=== PATIENT | female | born 1975 | race Caucasian/White ===

== ENCOUNTER 2023-12-27 13:24 | Emergency (ER) | payer BC, SELFPAY ==
[2023-12-27 13:33] VITALS: BP 152/78
[2023-12-27 13:54] LABS: % Basophils 0.2 % (0-2); % Eosinophils 0.1 % (0-6); % Immature Granulocytes 0.4 % (0-0.5); % Lymphocytes 21.2 % (20.5-51.1); % Monocytes 5.7 % (1.7-9.3); % Neutrophils 72.4 % (42.2-75.2); Absolute Lymphocytes 2.4 10^3/uL (1.2-3.4); Absolute Monocytes 0.6 10^3/uL (0.1-0.6); Absolute Neutrophils 8.2 10^3/uL (1.4-6.5); Hematocrit 44.7 % (37.0-47.0); Hemoglobin 15.2 g/dL (12.0-16.0); Mean Corpuscular Hgb 29.4 pg (27.0-31.0); Mean Corpuscular Volume 86.5 fL (81.0-99.0); Mean Platelet Volume 10.6 fL (7.4-10.4); Nucleated Red Blood Cells % 0 %; Platelet Count 239 10^3/uL (130-400); Red Blood Cell Count 5.17 10^6/uL (4.20-5.40); Red Cell Dist. Width 12.1 % (11.5-14.5); White Blood Cell Count 11.3 10^3/uL (4.8-10.8)
[2023-12-27 14:03] LABS: HCG, Serum Qualitative Screen Negative
[2023-12-27 14:16] LABS: ALT (SGPT) 17 U/L (0-35); AST (SGOT) 19 U/L (14-36); Albumin 5.1 g/dl (3.5-5.0); Alkaline Phosphatase 51 U/L (38-126); Blood Urea Nitrogen 16 mg/dl (7-17); Calcium 10.1 mg/dl (8.4-10.2); Carbon Dioxide 25 mmol/L (22-30); Chloride 103 mmol/L (98-107); Glucose 136 mg/dl (70-99); Potassium 3.6 mmol/L (3.5-5.1); Sodium 136 mmol/L (135-145); Total Bilirubin 0.7 mg/dl (0.2-1.3); eGFR > 60.00
--- NOTE | 2023-12-27 14:28 | ED.GENMED ---
History of Present Illness
General
Chief Complaint: Weakness
Time Seen by Provider: 12/27/23 13:55
Travel History
Have you had any contact with someone who has COVID-19?: No
Do you have any symptoms of coronavirus? Fever > 100 degrees, chills, cough, shortness of breath, sore throat, loss of taste or smell, muscle aches, or headache?: No
History of Present Illness
History of Present Illness:
Patient presents to the emergency department with generalized fatigue, paresthesias. Notes that she has been being worked up for left-sided facial tingling that has been going on for weeks. She initially was seen by her dentist who cleared her.
She has an appointment upcoming with ENT. Her primary doctor saw her and started steroids and Augmentin. Denies any sore throat or swollen lymph nodes. Denies any fever but did have a temperature 99. Denies any difficulty swallowing. States
symptoms improved but yesterday she became very fatigued. She was started on sertraline and Ativan for anxiety as well.
Past History
Past History
ED Past Medical History: None
ED Past Surgical History: None
Social History
Tobacco: Non-smoker
Alcohol: Occasional
Drug: None
Personal:
Living: with family
Employment: Employed
Family History
Family History: Negative Diabetes, Hypertension, Early CAD, Asthma or Sudden
Phy Exam
Physical Exam
Physical Exam:
GENERAL APPEARANCE: NAD, well developed/ well nourished
EYES lids/conjunctiva normal
EARS/NOSE/THROAT Mucous membranes moist, uvula midline without oral pharyngeal erythema, exudate or swelling, no LAD, normal TMs, no effusion
HEAD/NECK normocephalic atraumatic, neck is supple.
RESPIRATORY respiratory effort normal, speaks in full sentences, no accessory muscle use. Lungs clear to auscultation without rhonchi, wheezes, rales
CARDIAC Regular rate and rhythm, no edema.
ABDOMINAL Soft, ND/NT. No pulsatile masses on exam, rebound tenderness, De Jesus sign or pain over Mcburney's point.
MUSCLES/EXTREMITIES No abnormal range of motion, no swelling.
SKIN Warm, pink and dry. No rashes
NEUROLOGICAL Speech is clear and appropriate. Normal level of consciousness. 5/5 strength in all extremities. CN2-12 intact, SILT throughout
PSYCH Normal mood and affect. Judgement/competence is appropriate
Course
Orders/Labs/Results
Orders:
Orders
12/27/23 13:36
Test Result ONCE
12/27/23 13:46
CMP [Comprehensive Metabolic Panel] Urgent
Complete Blood Count/With Diff Urgent
HCG, Serum Qualitative Screen Urgent
Monotest Urgent
Comment: ADD ON
TSH Reflex To Free T4 Urgent
Comment: ADD ON
12/27/23 14:41
Add On- LAB Stat
Tests Added?: MONO, TSH to FREE T4
Abnormal Lab Results
12/27/23
13:46
WBC 11.3 H 10^3/uL
(4.8-10.8)
MPV 10.6 H fL
(7.4-10.4)
Absolute Neuts (auto) 8.2 H 10^3/uL
(1.4-6.5)
Glucose 136 H mg/dl
(70-99)
Albumin 5.1 H g/dl
(3.5-5.0)
12/27/23 13:46
12/27/23 13:46
Vital Signs
Initial and Last Documented VS:
Initial Vital Signs
Temp Pulse Resp BP Pulse Ox
99.5 F 86 20 152/78 97
12/27/23 13:33 12/27/23 13:33 12/27/23 13:33 12/27/23 13:33 12/27/23 13:33
Last Documented Vital Signs
Temp Pulse Resp BP Pulse Ox
99.2 F 72 16 132/75 96
12/27/23 15:38 12/27/23 15:38 12/27/23 15:38 12/27/23 15:38 12/27/23 15:38
*Critical Care Note
Total Time (30-74mins, 75-104mins- exclusive of procedures): Not Applicable
ED Attending Note
ED Attending Note
ED Attending Note:
Patient very well-appearing. Mild nonspecific complaints of parasthesias, fatiuge. Monospot and TSH negaitve. Reassuring ENT exam. Suspect anxiety component. She does have follow-up with ENT upcoming. return precautions given
-
Portions of this chart may have been created with voice recognition software.� Occasional wrong word or��sound alike� substitutions may have occurred due to the inherent limitations of voice recognition software.
Discharge Plan
Departure
Patient Disposition: Home (Routine Discharge)
Date of Disposition: 12/27/23
Time of Disposition: 16:34
Patient with high blood pressure during this ER visit?: Yes
Discharge Problem:
Fatigue
Prescriptions:
No Action
omeprazole 20 MG capsule,delayed release(DR/EC)
40 mg PO BID
diazepam 5 MG tablet
5 mg PO TIDPRN PRN (Reason: muscle spasms) Qty: 15 0RF
Referrals:
NONE,* [Active] -
Activity Restrictions/Additional Instructions:
Your symptoms may be related to medication such as prednisone or antianxiety medications prescribed. Please follow-up with the ENT doctor as scheduled. Return to the emergency department new or worsening symptoms
Interventions
Interventions:
*Risk Screen - Suicide Last Done: 12/27/23 17:04
*General Assessment Last Done: 12/27/23 17:00
*Neglect/Abuse Screening Last Done: 12/27/23 14:16
*ED COVID-19 Vaccine History Last Done: 12/27/23 13:33
*Nursing Disposition Last Done: 12/27/23 17:04
ED- Neurological Assessment Last Done: 12/27/23 14:16
ED- Pulmonary Assessment Last Done: 12/27/23 15:21
Discharge Date and Time
Discharge Date/Time: 12/27/23 17:05
Print Language: DIVEHI
[2023-12-27 15:38] VITALS: BP 132/75
[2023-12-27 15:55] LABS: Monotest Negative (Negative)
[2023-12-27 16:11] LABS: TSH Reflex To Free T4 1.91 uIU/ml (0.47-4.68)
== END 2023-12-27 17:05 | disposition home or self-care (01) ==
LOC: EMR 13:24
PROVIDERS: Emergency Medicine; EMERGENCY PHYSICIAN Emergency Medicine; FAMILY PHYSICIAN Family Medicine
DX: R53.83 Other fatigue (principal); R20.2 Paresthesia of skin; R53.1 Weakness; R03.0 Elevated blood-pressure reading, without diagnosis of hypertension; F41.9 Anxiety disorder, unspecified; Z88.1 Allergy status to other antibiotic agents; Z88.5 Allergy status to narcotic agent; Z88.2 Allergy status to sulfonamides
CPT/HCPCS: 99283; 80053; 84443; 84703; 85025; 86308

== ENCOUNTER → 2024-01-08 17:26 | Outpatient (REF) | payer BC, SELFPAY | LOC: WDC 17:26 | PROVIDERS: ATTENDING PHYSICIAN Nurse Practitioner Family; FAMILY PHYSICIAN Obstetrics & Gynecology | DX: Z12.31 Encounter for screening mammogram for malignant neoplasm of breast (principal) | CPT/HCPCS: 77063; 77067 ==

== ENCOUNTER → 2024-01-20 14:14 | Outpatient (REF) | payer BC, SELFPAY ==
[2024-01-20 15:11] LABS: Erythrocyte Sed Rate 6 mm/hour (0-20)
[2024-01-20 15:58] LABS: C-Reactive Protein < 5.00 mg/L (0.0-10.00)
== END ==
LOC: REG 14:14
PROVIDERS: ATTENDING PHYSICIAN Physician Assistant
DX: R51.9 Headache, unspecified (principal)
CPT/HCPCS: 36415; 85652; 86140

== ENCOUNTER → 2024-01-21 15:27 | Outpatient (REF) | payer BC, SELFPAY | LOC: HWRAD 15:27 | PROVIDERS: ATTENDING PHYSICIAN Otolaryngology; FAMILY PHYSICIAN Family Medicine | DX: J32.0 Chronic maxillary sinusitis (principal) | CPT/HCPCS: 70486 ==

== ENCOUNTER → 2025-01-10 17:18 | Outpatient (REF) | payer BC, SELFPAY | LOC: WDC 17:18 | PROVIDERS: ATTENDING PHYSICIAN Obstetrics & Gynecology; FAMILY PHYSICIAN Family Medicine | DX: Z12.31 Encounter for screening mammogram for malignant neoplasm of breast (principal) | CPT/HCPCS: 77063; 77067 ==